=== PATIENT | female | born 1965 | race Caucasian/White ===

== ENCOUNTER → 2017-11-27 | Outpatient (CLI) | payer OTHER | END | disposition home or self-care (01) | DX: M17.11 Unilateral primary osteoarthritis, right knee (principal); R26.2 Difficulty in walking, not elsewhere classified; M25.561 Pain in right knee; M25.661 Stiffness of right knee, not elsewhere classified; M62.81 Muscle weakness (generalized); Z74.1 Need for assistance with personal care | CPT/HCPCS: 97161 GP; 97165 GO; 97530 GP; 97535 GO ==

== ENCOUNTER 2017-12-16 21:28 | Inpatient (IN) | payer OTHER ==
[~2017-12-16] VITALS: Ht 160 cm; Wt 72.6 kg
[~2017-12-16 21:28] MED LIST: GUMMI BEAR MUL1 EACH PO; IRON325 M1 PO; PROTONIX20 MG PO; TYLENOL EXTRA500 MG PO
[2017-12-17 12:01] VITALS: BP 126/82
[2017-12-17 17:54] LABS: HEMATOCRIT 34.4 % (36.0-46.0); HEMOGLOBIN 11.2 G/DL (11.9-15.5); MCH 29.5 PG (29.0-34.0); MCHC 32.6 G/DL (30.0-36.0); MCV 90.5 FL (83-99); PLATELET COUNT 193 K/uL (156-360); RBC DIS.WIDTH-CV 12.3 % (11.8-14.6); RBC DIS.WIDTH-SD 40.4 % (39-53); WHITE BLOOD COUNT 5.7 K/uL (4.1-10.2)
[2017-12-17 18:44] VITALS: BP 151/53
[2017-12-17 20:35] VITALS: BP 146/71
[2017-12-18 00:03] VITALS: BP 130/64
[2017-12-18 04:15] VITALS: BP 121/61
[2017-12-18 05:38] LABS: HEMATOCRIT 30.7 % (36.0-46.0); HEMOGLOBIN 10.3 G/DL (11.9-15.5); MCV 87.7 FL (83-99)
[2017-12-18 06:10] LABS: CHLORIDE 103 MEQ/L (99-109); CREATININE 0.7 MG/DL (0.6-1.3); GFR ESTIMATE (CALCULATED) > 59 mL/min/; GLUCOSE 126 mg/dL (70-99); POTASSIUM 4.4 MEQ/L (3.7-5.4); SODIUM 137 MEQ/L (136-147); UREA NITROGEN (BUN) 17 mg/dL (9-23)
[2017-12-18 08:16] VITALS: BP 123/66
[2017-12-18 12:00] VITALS: BP 124/64
[2017-12-18 15:37] VITALS: BP 143/70
[2017-12-18 20:15] VITALS: BP 142/63
[2017-12-19 00:19] VITALS: BP 143/71
[2017-12-19 04:14] VITALS: BP 130/62
[2017-12-19 04:55] LABS: HEMATOCRIT 29.7 % (36.0-46.0); HEMOGLOBIN 10.2 G/DL (11.9-15.5); MCV 87.6 FL (83-99)
[2017-12-19] MEDS ORDERED: ENDOCET 5-3251 EACH PO (08:20)
[2017-12-19] MEDS ORDERED: LOVENOX40 MG/0.4 SC (08:20)
[2017-12-19] MEDS ORDERED: DOCUSATE SODIU100 MG PO (08:20)
[2017-12-19 12:17] VITALS: BP 134/72
== END 2017-12-19 14:11 | DRG 470 ==
LOC: ENRESERV 21:28 → 3WEST 12-17 11:05 → 2SOUTH 12-17 11:05 → 3WEST 12-17 18:09 → 2SOUTH 12-17 19:22 → 3WEST 12-19 14:11
PROVIDERS: Orthopaedic Surgery
PROC: 0SRC0J9 Replacement of Right Knee Joint with Synthetic Substitute, Cemented, Open Approach (ICD-10-PCS; principal; 2017-12-17)
PROC: 3E0T3BZ Introduction of Anesthetic Agent into Peripheral Nerves and Plexi, Percutaneous Approach (ICD-10-PCS; principal; 2017-12-17)
DX: M17.11 Unilateral primary osteoarthritis, right knee (principal); M21.161 Varus deformity, not elsewhere classified, right knee; K21.9 Gastro-esophageal reflux disease without esophagitis
CPT/HCPCS: 73560; 80048; 85014; 85018; 85027; C1713; J0690; J1100; J1170; J1650; J1885; J2250; J2405; J2795; J3010; J7050